=== PATIENT | female | born 1955 | race African-American/Black ===

== ENCOUNTER 2016-04-22 14:06 | Emergency (ER) | payer OTHER ==
[~2016-04-22] VITALS: Ht 170.2 cm; Wt 82.6 kg
[~2016-04-22 14:06] MED LIST: ANTIVERT25 MG PO; ATIVAN; ATIVAN0.5 MG PO; NORCO
[2016-04-22 14:09] VITALS: BP 97/54
[2016-04-22] MEDS ORDERED: LIORESAL10 MG PO (14:14)
[2016-04-22] MEDS ORDERED: SYNTHROID0.1 MG PO (14:14)
--- NOTE | 2016-04-22 14:45 | NUR ---
Patient ambulated to bed 04.
--- NOTE | 2016-04-22 15:06 | NUR ---
Dr. Cleaning evaluating patient at bedside.
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
[2016-04-22] MEDS ORDERED: NACL 0.9% 1,000 ML IV ONE (15:15)
[2016-04-22] MEDS ORDERED: ONDANSETRON 4 MG/2 ML VIAL IVP ONE (15:15)
--- NOTE | 2016-04-22 16:35 | NUR ---
Patient appears to be resting comfortably in bed. Vital Signs within normal limits. Respirations even and unlabored.
[2016-04-22 17:26] VITALS: BP 102/61
--- NOTE | 2016-04-22 17:27 | NUR ---
Patient discharged with v/s stable. Written and verbal after care instructions given and explained. Patient verbalized understanding. Ambulatory with steady gait. All questions addressed prior to discharge. Advised to follow up with PMD.
== END 2016-04-22 17:27 | disposition home or self-care (01) ==
LOC: MED 14:06
DX: R55 Syncope and collapse (principal); Z88.5 Allergy status to narcotic agent; W18.30XA Fall on same level, unspecified, initial encounter; Y93.E1 Activity, personal bathing and showering; Y92.89 Other specified places as the place of occurrence of the external cause; Y99.8 Other external cause status
CPT/HCPCS: 36415; 70450; 71010; 80053; 81001; 83880; 84484; 85025; 85610; 85730; 93005; 96361; 96374; 99285; J2405; J7030; Q0092

== ENCOUNTER 2016-10-07 19:24 | Emergency (ER) | payer OTHER ==
[~2016-10-07] VITALS: Ht 170.2 cm; Wt 81.6 kg
[~2016-10-07 19:24] MED LIST changes: -ANTIVERT25 MG PO; +ATI.5 PO; -ATIVAN; -ATIVAN0.5 MG PO; +BACL10TA4 PO; -NORCO; +SYN.1 PO
[2016-10-07 19:50] VITALS: BP 134/64
--- NOTE | 2016-10-07 22:12 | NUR ---
TO ER BED 7
--- NOTE | 2016-10-07 22:30 | NUR ---
Patient being evaluated by physician at bedside.
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
--- NOTE | 2016-10-07 23:00 | NUR ---
Patient discharged with v/s stable. Written and verbal after care instructions given and explained. Patient verbalized understanding. Ambulatory with steady gait. All questions addressed prior to discharge. Advised to follow up with PMD. RT. BIG TOE SPILINT AND FOOT INMOBILIZER APPLIED.
[2016-10-07 23:02] VITALS: BP 120/70
== END 2016-10-07 23:00 | disposition home or self-care (01) ==
LOC: MED 19:32
DX: S92.421A Displaced fracture of distal phalanx of right great toe, initial encounter for closed fracture (principal); Z88.5 Allergy status to narcotic agent; W20.8XXA Other cause of strike by thrown, projected or falling object, initial encounter; Y93.89 Activity, other specified; Y92.89 Other specified places as the place of occurrence of the external cause; Y99.8 Other external cause status
CPT/HCPCS: 73630; 99284

== ENCOUNTER 2017-01-08 12:08 | Emergency (ER) | payer OTHER ==
[~2017-01-08] VITALS: Ht 170.2 cm; Wt 86.6 kg
[2017-01-08 12:33] VITALS: BP 109/83
--- NOTE | 2017-01-08 12:36 | NUR ---
Patient ambulated to bed 11.
[2017-01-08] MEDS ORDERED: VITD1000 PO (12:44)
[2017-01-08] MEDS ORDERED: ACET-787 PO (12:44)
--- NOTE | 2017-01-08 12:50 | NUR ---
Patient back from XRAY via wheelchair.
--- NOTE | 2017-01-08 12:58 | NUR ---
ASSUMED PATIENT CARE, CONCUR WITH TRIAGE ASSESSMENT. XRAY COMPLETED. SAFETY PRECAUTIONS ENFORCED.
[2017-01-08] MEDS ORDERED: KETOROLAC 60 MG/2 ML VIAL IM ONE (13:40)
[2017-01-08 14:05] VITALS: BP 136/76
--- NOTE | 2017-01-08 14:06 | NUR ---
DISPO AND MEDICAL DECISION MAKING, DC HOME WITH INSTRUCTIONS AND PRESCRIPTIONS. NO ADVERSE REACTION TO TORADOL SHOT OBSERVED, DC HOME AMBULATORY, VSWNL, NO DISTRESS.
== END 2017-01-08 14:05 | disposition home or self-care (01) ==
LOC: MED 12:08
DX: M25.511 Pain in right shoulder (principal); Z79.899 Other long term (current) drug therapy; Z88.0 Allergy status to penicillin; Z88.5 Allergy status to narcotic agent; Z90.710 Acquired absence of both cervix and uterus
CPT/HCPCS: 73030; 96372; 99284; J1885

== ENCOUNTER 2017-08-07 13:10 | Emergency (ER) | payer OTHER ==
[~2017-08-07] VITALS: Ht 170.2 cm; Wt 81.6 kg
[~2017-08-07 13:10] MED LIST changes: +ACET-787 PO; +VITD1000 PO
[2017-08-07 14:26] VITALS: BP 119/69
--- NOTE | 2017-08-07 14:40 | NUR ---
62f bib self with c/o 11/22 constant 4th digit to left foot s/p "stubbing it on metal wheel of bed while getting up to use restroom this morning"; Profuse swelling and ecchymosis noted. Patient unable to bear weight. Limited ROM. Patient denies any numbness or tingling. Pt is alert and oriented to person, place, situation, and name. RR are even and unlabored. Patient provided with warm blanket. Awaiting er md tapia. Will continue to monitor.
--- NOTE | 2017-08-07 14:44 | NUR ---
xray by bedside
[2017-08-07 16:38] VITALS: BP 123/62
== END 2017-08-07 16:15 | disposition home or self-care (01) ==
LOC: MED 13:10
DX: S93.525A Sprain of metatarsophalangeal joint of left lesser toe(s), initial encounter (principal); W22.03XA Walked into furniture, initial encounter; Y93.02 Activity, running; Y99.8 Other external cause status; Y92.89 Other specified places as the place of occurrence of the external cause
CPT/HCPCS: 73630; 99284; Q0092

== ENCOUNTER 2018-04-20 15:22 | Emergency (ER) | payer OTHER ==
[~2018-04-20] VITALS: Ht 170.2 cm; Wt 85.3 kg
[2018-04-20 15:29] VITALS: BP 146/80
--- NOTE | 2018-04-20 15:50 | NUR ---
PATIENT AMBULATED TO ER BED 2.
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
[2018-04-20] MEDS ORDERED: IBUPROFEN 600 MG TAB PO ONE (17:10)
[2018-04-20] MEDS ORDERED: LORazepam 1 MG TAB PO ONE (17:10)
--- NOTE | 2018-04-20 17:30 | NUR ---
PATIENT REPORT GIVEN TO IQRA ORTA. TRANSFER OF CARE AT THIS TIME.
[2018-04-20 19:12] VITALS: BP 118/90
--- NOTE | 2018-04-20 19:12 | NUR ---
Patient discharged with v/s stable. Written and verbal after care instructions given and explained. Patient alert, oriented and verbalized understanding of instructions. Ambulatory with steady gait. All questions addressed prior to discharge. ID band removed. Patient advised to follow up with PMD. Rx of VISTARIL, VOLTAREN given. Patient educated on indication of medication including possible reaction and side effects. Opportunity to ask questions provided and answered.
== END 2018-04-20 19:12 | disposition home or self-care (01) ==
LOC: MED 15:22
DX: M54.2 Cervicalgia (principal); F41.9 Anxiety disorder, unspecified; Z88.0 Allergy status to penicillin; Z88.5 Allergy status to narcotic agent; Z79.899 Other long term (current) drug therapy; W01.0XXA Fall on same level from slipping, tripping and stumbling without subsequent striking against object, initial encounter; Y93.89 Activity, other specified; Y92.89 Other specified places as the place of occurrence of the external cause; Y99.8 Other external cause status
CPT/HCPCS: 72125; 81002; 81025; 99284

== ENCOUNTER 2018-05-17 11:35 | Emergency (ER) | payer OTHER ==
[~2018-05-17] VITALS: Ht 170.2 cm; Wt 89.4 kg
[2018-05-17 11:53] VITALS: BP 143/71
--- NOTE | 2018-05-17 12:00 | NUR ---
PT AMBULATED TO BED 1
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
--- NOTE | 2018-05-17 13:00 | NUR ---
PT RESTING IN BED, PROVIDED JUICE AND CRACKERS
[2018-05-17 13:44] LABS: BASOPHILS % (AUTO) 0.7 % (0.0-2.0); EOSINOPHILS # (AUTO) 0.1 K/uL (0-0.4); EOSINOPHILS % (AUTO) 1.8 % (0.0-4.0); HEMATOCRIT 41.6 % (36-48); HEMOGLOBIN 13.7 g/dL (12.0-16.0); LYMPHOCYTES # (AUTO) 1.7 K/uL (2.5-16.5); LYMPHOCYTES % (AUTO) 31.5 % (20.5-51.1); MEAN CORPUSCULAR HEMOGLOBIN 30 pg (27-31); MEAN CORPUSCULAR HGB CONC 33 g/dL (33-37); MEAN CORPUSCULAR VOLUME 90.6 fL (80-94); MONOCYTES # (AUTO) 0.5 K/uL (0.8-1.0); MONOCYTES % (AUTO) 9.9 % (1.7-9.3); NEUTROPHILS # (AUTO) 3.1 K/uL (1.8-7.7); NEUTROPHILS % (AUTO) 56.1 % (42.2-75.2); PLATELET COUNT (AUTO) 223 K/uL (140-450); RED BLOOD CELL COUNT(AUTO) 4.59 MIL/uL (4.20-5.40); RED CELL DISTRIBUTION WIDTH 13.8 % (11.6-13.7); WHITE BLOOD COUNT (AUTO) 5.5 K/uL (4.8-10.8)
[2018-05-17 13:55] LABS: ANION GAP 11.3 (8-16); CARBON DIOXIDE 29.8 mmol/L (21-32); POTASSIUM 4.1 mmol/L (3.5-5.1)
[2018-05-17 14:12] LABS: D-DIMER < 100 ng/ml (0-400)
[2018-05-17 14:14] LABS: PROTHROMBIN TIME 9.3 secs (10.8-13.4)
[2018-05-17 14:21] LABS: ALBUMIN 3.7 g/dL (3.4-5.0); TOTAL BILIRUBIN 0.5 mg/dL (0.0-1.0); URIC ACID 3.6 mg/dL (2.6-7.2)
[2018-05-17 14:22] LABS: MAGNESIUM 2.1 mg/dL (1.8-2.4)
--- NOTE | 2018-05-17 15:00 | NUR ---
PT IS AWAKE AND RESTING IN BED, PAIN IS 4/10 AT THIS TIME
[2018-05-17 15:47] LABS: APPEARANCE,URINE CLEAR (CLEAR); BILIRUBIN,URINE NEGATIVE (NEGATIVE); BLOOD, URINE NEGATIVE (NEGATIVE); COLOR,URINE YELLOW (YELLOW); LEUKOCYTE ESTERASE ,URINE NEGATIVE (NEGATIVE); NITRITE, URINE NEGATIVE (NEGATIVE); UGLUCOSE NEGATIVE (NEGATIVE)
[2018-05-17 16:34] VITALS: BP 140/69
== END 2018-05-17 16:33 | disposition home or self-care (01) ==
LOC: MED 11:35
DX: M54.16 Radiculopathy, lumbar region (principal); M79.661 Pain in right lower leg; C90.00 Multiple myeloma not having achieved remission; Z79.891 Long term (current) use of opiate analgesic; Z79.899 Other long term (current) drug therapy; Z88.0 Allergy status to penicillin; Z88.5 Allergy status to narcotic agent; Z90.710 Acquired absence of both cervix and uterus; Z90.89 Acquired absence of other organs; W10.9XXA Fall (on) (from) unspecified stairs and steps, initial encounter; Y93.89 Activity, other specified; Y92.89 Other specified places as the place of occurrence of the external cause; Y99.8 Other external cause status
CPT/HCPCS: 36415; 72131; 73552; 73562; 73590; 80053; 81003; 83735; 84550; 85025; 85379; 85610; 93971; 99284; Q0092

== ENCOUNTER 2018-09-10 09:17 | Emergency (ER) | payer OTHER ==
[~2018-09-10] VITALS: Ht 170.2 cm; Wt 90.3 kg
[2018-09-10 09:22] VITALS: BP 136/78
--- NOTE | 2018-09-10 09:35 | NUR ---
Patient to bed 3. RN evaluating patient at bedside.
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
--- NOTE | 2018-09-10 09:40 | NUR ---
SUBSTATION MANAGER HERE TO TAKE PT FOR CT.
--- NOTE | 2018-09-10 09:53 | NUR ---
Patient returned from CT scan. RN re-evaluating patient at bedside.
[2018-09-10] MEDS ORDERED: KETOROLAC 60 MG/2 ML VIAL IM ONE (10:30)
--- NOTE | 2018-09-10 10:30 | NUR ---
EMT MADE AWARE OF ORDER FOR CRUTCHES
[2018-09-10 11:03] VITALS: BP 128/68
--- NOTE | 2018-09-10 11:03 | NUR ---
Patient discharged with v/s stable. Written and verbal after care instructions given and explained. Patient alert, oriented and verbalized understanding of instructions. Ambulatory with crutches provided. All questions addressed prior to discharge. ID band removed. Patient advised to follow up with PMD. Rx of [place] and Motrin given. Patient educated on indication of medication including possible reaction and side effects. Opportunity to ask questions provided and answered.
== END 2018-09-10 11:03 | disposition home or self-care (01) ==
LOC: MED 09:17
DX: S70.01XA Contusion of right hip, initial encounter (principal); Z88.0 Allergy status to penicillin; Z88.5 Allergy status to narcotic agent; Z79.899 Other long term (current) drug therapy; W19.XXXA Unspecified fall, initial encounter; Y93.02 Activity, running; Y92.89 Other specified places as the place of occurrence of the external cause; Y99.8 Other external cause status
CPT/HCPCS: 72192; 96372; 99284; J1885